=== PATIENT | male | born 1995 | race Caucasian/White ===

== ENCOUNTER 2017-02-14 11:09 | Emergency (ER) | payer OTHER ==
[~2017-02-14] VITALS: Ht 177.8 cm; Wt 79.5 kg
[2017-02-14 11:10] VITALS: Ht 177.8 cm; Wt 79.5 kg
[2017-02-14] MEDS ORDERED: UDROBDM PO (12:38)
[2017-02-14] MEDS ORDERED: AZIT250T94 PO (12:38)
--- NOTE | 2017-02-14 12:41 | ERD ---
ER Documentation Chief Complaint Chief Complaint cough x 2 weeks HPI 4-year-old male presents with productive cough over the last 2 weeks. Denies fevers, chest pain, vomiting, abdominal pain. She was siblings with URI symptoms although lesser duration. ROS All systems reviewed and are negative except as per history of present illness. Medications Home Meds Active Scripts Guaifenesin-Dextromethorphan* (Robitussin* DM) 100MG/10MG/5ML Syrup, 5 ML PO Q4H Y for COUGH for 5 Days, ML Prov:JAY JAY FRANCES MD 02/14/17 Azithromycin* (Zithromax*) 250 Mg Tablet, 250 MG PO .ZPACK DIRECTED, #6 TAB TAKE 500 MG (2 TABS) THE FIRST DAY THEN 250 MG (1 TAB) DAYS 2-5 Prov:JAY JAY FRANCES MD 02/14/17 Allergies Allergies: Coded Allergies: No Known Allergy (Unverified , 02/14/17) PMhx/Soc Medical and Surgical Hx: pt denies Medical Hx, pt denies Surgical Hx History of Surgery: No Anesthesia Reaction: No Hx Neurological Disorder: No Hx Respiratory Disorders: No Hx Cardiac Disorders: No Hx Psychiatric Problems: No Hx Miscellaneous Medical Probl: No Hx Alcohol Use: No Hx Substance Use: No Hx Tobacco Use: No Smoking Status: Never smoker Physical Exam Vitals Vital Signs Date Time Temp Pulse Resp B/P Pulse Ox O2 Delivery O2 Flow Rate FiO2 02/14/17 11:10 98.2 69 18 145/72 96 Physical Exam Const: [], [id number]. Head: Atraumatic Eyes: Normal Conjunctiva ENT: Normal External Ears, Nose and Mouth. Neck: Full range of motion..~ No meningismus. Resp: Clear to auscultation bilaterally. Slight rhonchi without rales, wheezing or retractions. Cardio: Regular rate and rhythm, no murmurs Abd: Soft, non tender, non distended. Normal bowel sounds Skin: No petechiae or rashes Back: No midline or flank tenderness Ext: No cyanosis, or edema Neur: Awake and alert Psych: Normal Mood and Affect Procedures/MDM Patient presents with worsening URI symptoms for last 2 weeks and productive cough or there is no evidence of hypoxemia or respiratory distress or signs of pneumonia. He will be treated given the duration of Zithromax, Kyrieitussin primary care follow-up and return precautions. The patient was stable with no new complaints during the ER course. Clinically, there is no current evidence to suggest meningitis, sepsis, acute abdomen, pneumonia, acute coronary syndrome , pulmonary embolism, or any other emergent condition appearing to require further evaluation or hospitalization. The patient should certainly return for any new or worsening symptoms per the aftercare instructions. They should otherwise follow-up with her primary care doctor for reevaluation this week. Departure Diagnosis: Primary Impression: URI, acute Condition: Stable Patient Instructions: Acute Bronchitis Additional Instructions: Recheck for new or worsening symptoms or primary care doctor. JAY JAY FRANCES MD Feb 14, 2017 12:41
== END 2017-02-14 13:05 | disposition home or self-care (01) ==
LOC: FTE 11:09
DX: J06.9 Acute upper respiratory infection, unspecified (principal)
CPT/HCPCS: 99283